=== PATIENT | female | born 1990 | race Caucasian/White ===

== ENCOUNTER 2018-07-18 12:18 | Emergency (ER) | payer OTHER ==
--- NOTE | 2018-07-18 12:50 | ED Physician Documentation ---
History of Present Illness - Stated complaint Stated Complaint: ABD PX - Chief complaint Chief Complaint: Abd Pain - History obtained from History obtained from: Patient - History of Present Illness Timing: Prior to arrival - Additonal information Additional information: Patient is a previously healthy 28-year-old female with history of nephrolithiasis presenting with concern for recurrent left-sided kidney stones. Patient reports pain started at approximately 8 AM today without other inciting incident. Patient complains ofLeft-sided flank pain that radiates towards her abdomen, as well as suprapubic abdominal pain accompanied by nausea and vomiting. Patient reports decreased urination without specific hematuria or dysuria. Patient also denies fever or other vaginal complaints including bleeding. No particular worsening or improving factors noted to her symptoms. Patient reports that she has not .Patient has never required surgical intervention or placement of stents for her previous kidney stones. Review of Systems Constitutional: denies: Fever GI: reports: Abdominal Pain, Nausea, Vomiting : denies: Dysuria Musculoskeletal: reports: Back pain PD PAST MEDICAL HISTORY - Past Medical History Past Medical History: Yes : Kidney stones Psych: Depression, Anxiety - Past Surgical History Past Surgical History: No - Present Medications Home Medications: Ambulatory Orders Medication Instructions Recorded Confirmed Acetaminophen [Tylenol] 08/30/12 08/30/12 Acetaminophen/Cod 300/30 [Tylenol 08/30/12 08/30/12 #3] Hydroxyzine HCl 25 mg HS 08/30/12 08/30/12 Meloxicam 08/30/12 08/30/12 Pseudoephedrine [Sudafed] PO 3-4XD 08/30/12 08/30/12 Sertraline [Zoloft] 50 mg DAILY 08/30/12 08/30/12 guaiFENesin [Mucinex] 600 mg PO BID 08/30/12 08/30/12 Hydrocodone/Acetaminophen 1 - 2 each PO Q6H PRN #14 tablet 07/18/18 [Hydrocodon-Acetaminophen 5-325] Ondansetron Odt [Zofran] 4 mg TL Q6H PRN #10 tablet 07/18/18 Tamsulosin HCl [Flomax] 0.4 mg PO DAILY #14 cap.er.24h 07/18/18 - Allergies Allergies/Adverse Reactions: Allergies Allergy/AdvReac Type Severity Reaction Status Date / Time No Known Drug Allergies Allergy Verified 08/30/12 18:45 - Social History Does the pt smoke?: No Smoking Status: Never smoker Does the pt drink ETOH?: Yes Does the pt have substance abuse?: No - Immunizations Immunizations are current?: Yes - POLST Patient has POLST: No PD ED PE NORMAL - General General: Alert and oriented X 3, No acute distress, Well developed/nourished (Curled up in the position, uncomfortable appearing) - HEENT HEENT: Atraumatic, Moist mucous membranes - Cardiac Cardiac: RRR, No murmur - Respiratory Respiratory: No respiratory distress, Clear bilaterally - Abdomen Abdomen: Normal bowel sounds, Soft, Non distended. No: Non tender (Mild suprapubic tenderness) - Back Back: No: No CVA TTP (Left-sided CVA tenderness present) - Derm Derm: Normal color, Warm and dry, No rash - Extremities Extremities: No deformity, No tenderness to palpate - Neuro Neuro: Alert and oriented X 3, No motor deficit, No sensory deficit - Psych Psych: Normal mood, Normal affect Results - Vitals Vitals: Vital Signs - 24 hr 07/18/18 07/18/18 12:26 14:48 Temperature 36.4 C L 36.8 C Heart Rate 60 56 L Respiratory 18 18 Rate Blood Pressure 128/85 H 99/60 O2 Saturation 100 99 Oxygen O2 Source Room air - Labs Labs: Laboratory Tests 07/18/18 07/18/18 07/18/18 13:14 13:14 13:14 WBC 15.2 H RBC 4.64 Hgb 13.2 Hct 40.3 MCV 86.9 MCH 28.5 MCHC 32.8 RDW 14.2 Plt Count 227 MPV 8.7 Neut # (Auto) 13.9 H Lymph # (Auto) 0.7 L [place] # (Auto) 0.5 Eos # (Auto) 0.0 Baso # (Auto) 0.1 Absolute Nucleated RBC 0.00 Nucleated RBC % 0.0 Sodium 136 Potassium 3.9 Chloride 104 Carbon Dioxide 21 Anion Gap 11.0 BUN 19 Creatinine 0.8 Estimated GFR (MDRD) 84 L Glucose 123 H Calcium 9.1 Total Bilirubin 0.2 AST 20 ALT 15 Alkaline Phosphatase 59 Total Protein 7.2 Albumin 4.4 Globulin 2.8 Albumin/Globulin Ratio 1.6 Lipase 30 HCG, Quant < 0.60 Urine Color Urine Clarity Urine pH Ur Specific [place] Urine Protein Urine Glucose (UA) Urine Ketones Urine Occult Blood Urine Nitrite Urine Bilirubin Urine Urobilinogen Ur Leukocyte Esterase Urine RBC Urine WBC Ur Squamous Epith Cells Urine Bacteria Ur Microscopic Review Urine Culture Comments 07/18/18 14:30 WBC RBC Hgb Hct MCV MCH MCHC RDW Plt Count MPV Neut # (Auto) Lymph # (Auto) [place] # (Auto) Eos # (Auto) Baso # (Auto) Absolute Nucleated RBC Nucleated RBC % Sodium Potassium Chloride Carbon Dioxide Anion Gap BUN Creatinine Estimated GFR (MDRD) Glucose Calcium Total Bilirubin AST ALT Alkaline Phosphatase Total Protein Albumin Globulin Albumin/Globulin Ratio Lipase HCG, Quant Urine Color YELLOW Urine Clarity HAZY Urine pH 7.0 Ur Specific [place] 1.020 Urine Protein NEGATIVE Urine Glucose (UA) NEGATIVE Urine Ketones 15 H Urine Occult Blood LARGE H Urine Nitrite NEGATIVE Urine Bilirubin NEGATIVE Urine Urobilinogen 0.2 (NORMAL) Ur Leukocyte Esterase NEGATIVE Urine RBC TNTC H Urine WBC 0-3 Ur Squamous Epith Cells RARE Squamous Urine Bacteria None Seen Ur Microscopic Review INDICATED Urine Culture Comments NOT INDICATED PD MEDICAL DECISION MAKING - ED course Complexity details: reviewed results, re-evaluated patient, considered differential, d/w patient ED course: Most concerning for pyelonephritis, nephrolithiasis, UTI given patient's history, similar symptoms today, and physical exam findings. Vital signs within normal limits. IV placement obtained and patient started on IV fluid, as well as nausea and pain medication. Blood work and urinalysis obtained, as well as ordered CT to further evaluate for location and size of likely stone. Lower suspicion for vaginal or ovarian pathology including torsion or cyst, but considered. Also have low suspicion for other intra-abdominal pathology including appendicitis, gallbladder disease, small bowel obstruction, AAA, diverticulitis, but considered.Lab work returned relatively unremarkable except for mild leukocytosis, but no evidence of elevation in creatinine. Unsure if this leukocytosis is reflective of repetitive vomiting from earlier today or infection. Patient is otherwise afebrile and vital signs within normal limits. Urinalysis also obtained which indicated presence of blood, but does not appear infected. CT imaging indicated nonobstructive and otherwise relatively uncomplicated 4 mm stone on the left. Advised patient of results and recommendations and feel that she is appropriate to treat symptomatically at home with Flomax, pain medication, nausea medication. At this time, do not feel she requires antibiotic therapy. Advised on strict return precautions, other supportive cares, need for primary care and possibly urology follow-up. Patient voiced understanding and is comfortable with discharge plan. Departure - Departure Disposition: 01 Home, Self Care Clinical Impression: Kidney stones Condition: Good Instructions: ED Stone Renal W Colic Follow-Up: your,doctor [Other] - Within 3 Days Prescriptions: Hydrocodone/Acetaminophen [Hydrocodon-Acetaminophen 5-325] 1 - 2 each PO Q6H PRN #14 tablet PRN Reason: pain Ondansetron Odt [Zofran] 4 mg TL Q6H PRN #10 tablet PRN Reason: Nausea / Vomiting Tamsulosin HCl [Flomax] 0.4 mg PO DAILY #14 cap.er.24h Comments: Please continue any home medications as previously instructed. May use Flomax, Zofran, [place] as prescribed to help pass stone, control nausea, control pain, respectively. If taking [place], do not combine with alcohol, driving, or additional Tylenol. If taking [place] regularly, recommend use of stool softener or laxative to avoid constipation. If not using [place], may use ibuprofen or Tylenol. Also recommend hydration and close follow-up with either primary care physician or urologist. Recommend [facility] in [facility]. Return to ED sooner if expands worsening symptoms or other concerns.
[2018-07-18] MEDS ORDERED: ONDANSETRON 4 MG/2 ML VIAL IVP STA (12:55)
[2018-07-18] MEDS ORDERED: KETOROLAC 30 MG/ML VIAL IVP STA (12:55)
[2018-07-18] MEDS ORDERED: fentaNYL 100 MCG/2 ML VIAL IVP STA (12:55)
[2018-07-18] MEDS ORDERED: SODIUM CHLORIDE 0.9% 1,000 ML IV ONE (12:55)
[2018-07-18 13:18] LABS: BASOPHILS # (AUTO) 0.1 10^3/uL (0.0-0.1); BASOPHILS % (AUTO) 0.4 %; EOSINOPHILS % (AUTO) 0.1 %; HGB - HEMOGLOBIN 13.2 g/dL (12.0-16.0); LYMPHOCYTES # (AUTO) 0.7 10^3/uL (1.5-3.5); LYMPHOCYTES % (AUTO) 4.3 %; MEAN CORPUSCULAR HEMOGLOBIN 28.5 pg (27.0-31.0); MEAN CORPUSCULAR HGB CONC 32.8 g/dL (32.0-36.0); MEAN CORPUSCULAR VOLUME 86.9 fL (81.0-99.0); MEAN PLATELET VOLUME 8.7 fL (7.9-10.8); MONOCYTES # (AUTO) 0.5 10^3/uL (0.0-1.0); MONOCYTES % (AUTO) 3.4 %; NEUTROPHILS # (AUTO) 13.9 10^3/uL (1.5-6.6); NEUTROPHILS % (AUTO) 91.8 %; PLT - PLATELET COUNT 227 10^3/uL (130-450); RED BLOOD COUNT 4.64 10^6/uL (4.20-5.40); RED CELL DISTRIBUTION WIDTH 14.2 % (12.0-15.0); WHITE BLOOD COUNT 15.2 x10^3/uL (4.8-10.8)
[2018-07-18 13:42] LABS: ALBUMIN 4.4 g/dL (3.2-5.5); ALBUMIN/GLOBULIN RATIO 1.6 (1.0-2.2); BILIRUBIN,TOTAL 0.2 mg/dL (0.2-1.0); CALCIUM 9.1 mg/dL (8.5-10.3); CREATININE 0.8 mg/dL (0.4-1.0); TOTAL PROTEIN 7.2 g/dL (6.7-8.2)
--- NOTE | 2018-07-18 13:59 | CT Report ---
Reason: concern for left side kidney stone Procedure Date: 07/18/2018 Accession Number: [id number] / [id number] Procedure: CT - Abdomen/Pelvis WO CPT Code: FULL RESULT: EXAM: CT ABDOMEN AND PELVIS (CT KUB) EXAM DATE: 07/18/2018 01:43 PM. CLINICAL HISTORY: Concern for left side kidney stone. COMPARISONS: None available. TECHNIQUE: Routine axial helical CT imaging was performed through the abdomen and pelvis without IV contrast. Reconstructions: Coronal and sagittal. In accordance with CT protocol optimization, one or more of the following dose reduction techniques were utilized for this exam: automated exposure control, adjustment of mA and/or KV based on patient size, or use of iterative reconstructive technique. FINDINGS: Lung Bases: Unremarkable. Right Kidney/Ureter: No stones, hydronephrosis, or hydroureter. No perinephric fat stranding. Left Kidney/Ureter: Mild hydronephrosis secondary to a 4 mm stone in the distal left ureter approximately 8 mm from the left ureterovesical junction. Mild perinephric fat stranding. Other Solid Organs: Noncontrast images of the solid organs are grossly unremarkable. Gallbladder/Bile Ducts: Unremarkable. Peritoneal Cavity: Small hiatal hernia. Nonobstructive bowel gas pattern. No free air or free fluid. The appendix is well visualized and normal. Pelvic Organs: No intraluminal stones in the urinary bladder. Hypodense mass in the left adnexa measuring 2.6 x 2.7 cm, which may represent a dominant follicle in the left ovary versus corpus luteal cyst. Vasculature: Unremarkable. Other: None. IMPRESSION: Mild hydronephrosis of the left kidney secondary to a 4 mm stone in the distal left ureter. Small hiatal hernia. Normal appendix. Hypodense mass in the left adnexa, possible dominant follicle or corpus luteal cyst. This could be further evaluated with pelvic ultrasound as needed. RADIA
[2018-07-18 14:42] LABS: BILIRUBIN,URINE NEGATIVE (NEGATIVE); GLUCOSE, URINE (UA) NEGATIVE (NEGATIVE); KETONES,URINE (UA) 15 mg/dL (NEGATIVE); LEUKOCYTE ESTERASE, URINE NEGATIVE (NEGATIVE); NITRITE,URINE NEGATIVE (NEGATIVE); OCCULT BLOOD,URINE LARGE (NEGATIVE); PROTEIN,URINE NEGATIVE (NEGATIVE); UROBILINOGEN,URINE 0.2 (NORMAL) E.U./dL (NORMAL)
[2018-07-18 14:44] LABS: CLARITY,URINE HAZY (CLEAR)
[2018-07-18 14:49] VITALS: BP 99/60
[2018-07-18 14:50] LABS: BACTERIA,URINE None Seen /HPF (None Seen); RBC,URINE TNTC /HPF (0-5); SQUAMOUS EPITHELIAL CELL,UR RARE Squamous (<= Few)
== END 2018-07-18 15:04 | disposition home or self-care (01) ==
LOC: ED 12:18
DX: N13.2 Hydronephrosis with renal and ureteral calculous obstruction (principal); K44.9 Diaphragmatic hernia without obstruction or gangrene
CPT/HCPCS: 36415; 74176; 80053; 81001; 81003; 83690; 84702; 85025; 87086; 96374; 96375; 99283; 99284

== ENCOUNTER 2018-08-03 10:38 | Outpatient (CLI) | payer OTHER ==
--- NOTE | 2018-08-03 11:25 | CT Report ---
Reason: CALCULUS OF KIDNEY Procedure Date: 08/03/2018 Accession Number: [id number] / [id number] Procedure: CT - Abdomen/Pelvis WO CPT Code: FULL RESULT: EXAM: CT ABDOMEN AND PELVIS (CT KUB) EXAM DATE: 08/03/2018 10:54 AM. CLINICAL HISTORY: CALCULUS OF KIDNEY. COMPARISONS: ABDOMEN/PELVIS W/O 07/18/2018 1:32 PM. TECHNIQUE: Routine axial helical CT imaging was performed through the abdomen and pelvis without IV contrast. Reconstructions: Coronal and sagittal. In accordance with CT protocol optimization, one or more of the following dose reduction techniques were utilized for this exam: automated exposure control, adjustment of mA and/or KV based on patient size, or use of iterative reconstructive technique. FINDINGS: Lung Bases: Unremarkable. Right Kidney/Ureter: No stones, hydronephrosis, or hydroureter. No perinephric fat stranding. Left Kidney/Ureter: No stones, hydronephrosis, or hydroureter. The previous left hydronephrosis has resolved. No perinephric fat stranding. Other Solid Organs: Noncontrast images of the solid organs are grossly unremarkable. Gallbladder/Bile Ducts: Unremarkable. Peritoneal Cavity: No free fluid, free air or jeff adenopathy. Bowel is grossly unremarkable. Pelvic Organs: No bladder stones or wall thickening. Noncontrast images of the visualized pelvic organs are unremarkable. Vasculature: Unremarkable. Other: None. IMPRESSION: Negative examination. No evidence of urolithiasis or hydronephrosis. The previous left hydronephrosis has resolved RADIA
== END 2018-08-03 10:39 | disposition home or self-care (01) ==
LOC: DI 10:38
PROVIDERS: ATTEND Specialist
DX: N20.0 Calculus of kidney (principal)
CPT/HCPCS: 74176

== ENCOUNTER 2018-08-10 18:43 | Outpatient (CLI) | payer OTHER ==
--- NOTE | 2018-08-10 22:14 | Ultrasound Report ---
Reason: ACUTE PANCREATITIS WITHOUT NECROSIS OR INFECTION, Procedure Date: 08/10/2018 Accession Number: [id number] / [id number] Procedure: US - Abdomen Limited CPT Code: FULL RESULT: EXAM: ABDOMEN ULTRASOUND LIMITED, RUQ EXAM DATE: 08/10/2018 07:30 PM. CLINICAL HISTORY: ACUTE PANCREATITIS WITHOUT NECROSIS OR INFECTION. COMPARISON: ABDOMEN/PELVIS W/O 08/03/2018 10:49 AM. TECHNIQUE: Real-time scanning was performed with static images obtained. FINDINGS: Liver: Normal in size and echotexture. 15.8 cm. Main portal vein flow: Hepatopetal. Gallbladder: Normal. No stones, wall thickening, or sonographic Dubon's sign. Biliary System: CBD measures 3 mm. No intrahepatic or extrahepatic ductal dilatation. Pancreas: Normal. Right kidney: 10.6 cm. No hydronephrosis. Abdominal aorta and IVC: Normal. Other: None. IMPRESSION: Normal. No cholelithiasis or cholecystitis. RADIA
== END 2018-08-10 18:44 | disposition home or self-care (01) ==
LOC: DI 18:43
PROVIDERS: ATTEND Specialist
DX: K85.90 Acute pancreatitis without necrosis or infection, unspecified (principal)
CPT/HCPCS: 76705

== ENCOUNTER 2019-11-05 15:57 | Emergency (ER) | payer OTHER ==
--- NOTE | 2019-11-05 16:09 | ED Physician Documentation ---
History of Present Illness - Stated complaint Stated Complaint: FEMALE - Chief complaint Chief Complaint: General - History obtained from History obtained from: Patient (She has 2 painful lumps that have been going on for a little over 48 hours, one is on the left side of the groin and one is on the perineum. Denies fevers or chills.) Review of Systems Constitutional: denies: Fever, Chills GI: denies: Abdominal Pain, Nausea, Vomiting, Diarrhea : denies: Dysuria, Frequency PD PAST MEDICAL HISTORY - Past Medical History : Kidney stones Psych: Depression, Anxiety - Past Surgical History Past Surgical History: No - Present Medications Home Medications: Ambulatory Orders Medication Instructions Recorded Confirmed Acetaminophen [Tylenol] 08/30/12 08/30/12 Acetaminophen/Cod 300/30 [Tylenol 08/30/12 08/30/12 #3] Hydroxyzine HCl 25 mg HS 08/30/12 08/30/12 Meloxicam 08/30/12 08/30/12 Pseudoephedrine [Sudafed] PO 3-4XD 08/30/12 08/30/12 Sertraline [Zoloft] 50 mg DAILY 08/30/12 08/30/12 guaiFENesin [Mucinex] 600 mg PO BID 08/30/12 08/30/12 Hydrocodone/Acetaminophen 1 - 2 each PO Q6H PRN #14 tablet 07/18/18 [Hydrocodon-Acetaminophen 5-325] Ondansetron Odt [Zofran] 4 mg TL Q6H PRN #10 tablet 07/18/18 Tamsulosin HCl [Flomax] 0.4 mg PO DAILY #14 cap.er.24h 07/18/18 Sulfamethoxazole/Trimethoprim 1 each PO BID 7 Days #14 tablet 11/05/19 [Sulfamethoxazole-Tmp Ds Tablet] - Allergies Allergies/Adverse Reactions: Allergies Allergy/AdvReac Type Severity Reaction Status Date / Time No Known Drug Allergies Allergy Verified 11/05/19 16:01 - Social History Does the pt smoke?: No Smoking Status: Never smoker Does the pt drink ETOH?: Yes Does the pt have substance abuse?: No - Immunizations Immunizations are current?: Yes - POLST Patient has POLST: No PD ED PE NORMAL - Vitals Vital signs reviewed: Yes - General General: Alert and oriented X 3, No acute distress - Abdomen Abdomen: Soft, Non tender - Female Female : Other (Exam done with Sonya SPENCER present and chaperoning as were all procedures. She has a pointed inferior left gluteal abscess and reactive left inguinal lymph node.) - Neuro Neuro: Alert and oriented X 3, Normal speech - Psych Psych: Normal mood, Normal affect Results - Vitals Vitals: Vital Signs - 24 hr 11/05/19 16:01 Temperature 37.2 C Heart Rate 87 Respiratory 16 Rate Blood Pressure 107/72 O2 Saturation 99 Oxygen O2 Source Room air Procedures - Abscess I&D (location) L buttock Preparation: Alcohol, Lidocaine 1% Incision: Incised with scalpel, Purulent drainage, Loculations broken, Culture obtained, Other (sebaceous material) Other: Pt tolerated well, Dressing applied, Antibiotic prescribed Departure - Departure Disposition: 01 Home, Self Care Clinical Impression: Abscess, gluteal Condition: Good Record reviewed to determine appropriate education?: Yes Instructions: ED Abscess IandD Prescriptions: Sulfamethoxazole/Trimethoprim [Sulfamethoxazole-Tmp Ds Tablet] 1 each PO BID 7 Days #14 tablet Comments: As discussed, this looks like what is known as a sebaceous cyst that got infected. If it recurs you will need to see a general surgeon for an excision at a time when it is not actively infected. Return if worse. We are performing a wound culture, the results should be done in 48-72 hours. If antibiotic change is necessary we will call you. Return if worse in the meantime, especially if you develop increased pain, fevers, cannot keep down the medication. Otherwise follow-up with your physician in approximately 2-3 days.
[2019-11-05] MEDS ORDERED: BUFFERED LIDOCAINE 10 ML SYRINGE SUBQ STA (16:25)
[2019-11-05 16:51] VITALS: BP 119/75
== END 2019-11-05 16:51 | disposition home or self-care (01) ==
LOC: ED 15:57
DX: L02.31 Cutaneous abscess of buttock (principal); R59.0 Localized enlarged lymph nodes
CPT/HCPCS: 10060; 87070; 87077; 87181; 87205

== ENCOUNTER 2020-12-28 08:00 | Outpatient (CLI) | payer OTHER ==
[2020-12-28 18:12] LABS: CREATININE 0.7 mg/dL (0.4-1.0); POTASSIUM 3.8 mmol/L (3.5-5.0)
[2020-12-28 18:16] LABS: HCT - HEMATOCRIT 38.2 % (37.0-47.0); HGB - HEMOGLOBIN 12.4 g/dL (12.0-16.0); MEAN CORPUSCULAR HEMOGLOBIN 28.8 pg (27.0-31.0); MEAN CORPUSCULAR HGB CONC 32.5 g/dL (32.0-36.0); MEAN CORPUSCULAR VOLUME 88.8 fL (81.0-99.0); MEAN PLATELET VOLUME 10.3 fL (7.9-10.8); RED BLOOD COUNT 4.3 10^6/uL (4.20-5.40); WHITE BLOOD COUNT 9.8 x10^3/uL (4.8-10.8)
== END 2020-12-28 23:59 | disposition home or self-care (01) ==
LOC: LAB.N 08:00
PROVIDERS: ATTEND Physician Assistant Medical
DX: N30.00 Acute cystitis without hematuria (principal)
CPT/HCPCS: 36415; 80048; 85027; 87086; 87181

== ENCOUNTER 2021-02-28 07:43 | Outpatient (CLI) | payer OTHER ==
--- NOTE | 2021-03-04 11:47 | Ultrasound Report ---
LIMITED ULTRASOUND OF LEFT BREAST: 02/28/2021 CLINICAL: Palpable left breast lump. Comparison is made to exam dated: 02/28/2021 mammogram - [facility]. Ultrasound of the left breast 2 o'clock region was performed. [place] scale images of the real-time ex amination were reviewed. No significant abnormalities were seen sonographically in the left breast. IMPRESSION: NEGATIVE There is no sonographic evidence of malignancy or other abnormality in the left breast. Follow-up US of the right breast in 6 months recommended to document stability of a suspected fibroadenoma. This exam was interpreted at Station ID: [id number]. Electronically Signed By: Kristopher Cotter M.D. jr/:02/28/2021 09:29:35 Ultrasound BI-RADS: 1 Negative BI-RADS CATEGORY: (1) - 1 Unspecified - other recall n/a LATERALITY: (B)
--- NOTE | 2021-03-04 11:47 | Mammography Report ---
BILATERAL DIGITAL DIAGNOSTIC MAMMOGRAM 3D/2D: 02/28/2021 CLINICAL: Palpable lumps in both breasts. No prior exams were available for comparison. The tissue of both breasts is extremely dense, which l owers the sensitivity of mammography. There is a mass with an indistinct margin in the right breast at 5 o'clock middle depth. This correl ates as palpated. No other significant masses, calcifications, or other findings are seen in either breast. IMPRESSION: INCOMPLETE: NEEDS ADDITIONAL IMAGING EVALUATION The mass in the right breast is indeterminate. An ultrasound is recommended. This exam was interpreted at Station ID: [id number]. NOTE: For mammograms, a report in lay terms will be sent to the patient. Approximately 15% of breast malignancies will not be visualized mammographically. In the management of a palpable breast mass, a negative mammogram must not discourage biopsy of a clinically suspicious lesion. Electronically Signed By: Kristopher Cotter M.D., jr/leobardo:02/28/2021 09:26:27 ACR BI-RADS Category 0: Incomplete 3340F PARENCHYMAL PATTERN: (VD) - The breast(s) demonstrate(s) extremely dense parenchyma, limiting the sen sitivity of mammography. BI-RADS CATEGORY: (0) - 0 Unspecified - other recall n/a LATERALITY: (B)
--- NOTE | 2021-03-04 11:47 | Ultrasound Report ---
LIMITED ULTRASOUND OF RIGHT BREAST AND AXILLA: 02/28/2021 CLINICAL: Palpable right breast lumps. Comparison is made to exam dated: 02/28/2021 mammogram - [facility]. Color flow and real-time ultrasound of the right breast 1 o'clock, 5 o'clock, and axilla regions were performed. [place] scale images of the real-time examination were reviewed. There is a 1.4 cm x 0.5 cm x 1.6 cm oval mass with a circumscribed margin in the right breast at 5 o' clock middle depth 6 cm from the nipple. This oval mass is hypoechoic with an abrupt boundary and no posterior acoustic shadowing or enhancement. This correlates as palpated and with mammography findi ngs. Color flow imaging demonstrates that there is no vascularity present. No sonographic (or mammographic) abnormality at the 1 o'clock palpable area of concern. IMPRESSION: PROBABLY BENIGN The 1.4 cm x 0.5 cm x 1.6 cm oval mass in the right breast is consistent with a fibroadenoma and is p robably benign. A follow-up ultrasound in 6 months is recommended to demonstrate stability. This exam was interpreted at Station ID: [id number]. Electronically Signed By: Kristopher Cotter M.D. jr/:02/28/2021 09:27:59 Ultrasound BI-RADS: 3 Probably benign BI-RADS CATEGORY: (3) - 3 Ultrasound [id number] 6 month follow-up LATERALITY: (B)
== END 2021-02-28 07:44 | disposition home or self-care (01) ==
LOC: DI 07:43
PROVIDERS: ATTEND Obstetrics & Gynecology
DX: N63.14 Unspecified lump in the right breast, lower inner quadrant (principal); N64.59 Other signs and symptoms in breast

== ENCOUNTER 2021-03-18 22:59 | Emergency (ER) | payer OTHER ==
[2021-03-18] MEDS ORDERED: SODIUM CHLORIDE 0.9% 1,000 ML IV STA (23:07)
[2021-03-18] MEDS ORDERED: HYDROmorphone 1 MG/ML CARPUJECT IVP STA (23:26)
--- NOTE | 2021-03-18 23:29 | ED Physician Documentation ---
History of Present Illness - Stated complaint Stated Complaint: LQ PX/N - Chief complaint Chief Complaint: Abd Pain - History obtained from History obtained from: Patient - Additonal information Additional information: Patient comes emergency department chief complaint of left flank pain that started a couple days ago. Patient states it was more of a dull ache but that the pain has become sharper this afternoon. Patient has a history of kidney stone with last would be it about 2 years ago. She is wondering if she is having another kidney stone. She has not noticed hematuria or migration of the pain, but has noticed dysuria. She states she always gets hot and cold flashes so she does not really know if she has had a fever. She is not measured, but states that her hot and cold flashes do not feel any different than usual. She states she has slight nausea, but she thinks this is related to the pain. No recent heavy work with her back, though she does note she is packing for a move. No other complaints at this time. No loss of bowel or bladder control and no weakness or numbness/tingling of the left lower extremity. Review of Systems Ten Systems: 10 systems reviewed and negative Constitutional: reports: Reviewed and negative Eyes: reports: Reviewed and negative Ears: reports: Reviewed and negative Nose: reports: Reviewed and negative Throat: reports: Reviewed and negative Cardiac: reports: Reviewed and negative Respiratory: reports: Reviewed and negative GI: reports: Abdominal Pain (Left flank) : reports: Dysuria. denies: Hematuria Skin: reports: Reviewed and negative Musculoskeletal: reports: Reviewed and negative Neurologic: reports: Reviewed and negative Psychiatric: reports: Reviewed and negative Endocrine: reports: Reviewed and negative Immunocompromised: reports: Reviewed and negative PD PAST MEDICAL HISTORY - Past Medical History Cardiovascular: None Respiratory: None Neuro: None Endocrine/Autoimmune: HyPOthyroidism GI: None NURSE PRIVATE DUTY: Miscarriage(s) : Kidney stones HEENT: None Psych: Depression, Anxiety Musculoskeletal: Fibromyalgia Derm: None - Past Surgical History Past Surgical History: No - Present Medications Home Medications: Ambulatory Orders Medication Instructions Recorded Confirmed Acetaminophen [Tylenol] 08/30/12 08/30/12 Acetaminophen/Cod 300/30 [Tylenol 08/30/12 08/30/12 #3] Hydroxyzine HCl 25 mg HS 08/30/12 08/30/12 Meloxicam 08/30/12 08/30/12 Pseudoephedrine [Sudafed] PO 3-4XD 08/30/12 08/30/12 Sertraline [Zoloft] 50 mg DAILY 08/30/12 08/30/12 guaiFENesin [Mucinex] 600 mg PO BID 08/30/12 08/30/12 Hydrocodone/Acetaminophen 1 - 2 each PO Q6H PRN #14 tablet 07/18/18 [Hydrocodon-Acetaminophen 5-325] Ondansetron Odt [Zofran] 4 mg TL Q6H PRN #10 tablet 07/18/18 Tamsulosin HCl [Flomax] 0.4 mg PO DAILY #14 cap.er.24h 07/18/18 Sulfamethoxazole/Trimethoprim 1 each PO BID 7 Days #14 tablet 11/05/19 [Sulfamethoxazole-Tmp Ds Tablet] Ciprofloxacin HCl [Cipro] 500 mg PO BID #14 tablet 03/19/21 Tamsulosin HCl [Flomax] 0.4 mg PO DAILY #5 03/19/21 - Allergies Allergies/Adverse Reactions: Allergies Allergy/AdvReac Type Severity Reaction Status Date / Time No Known Drug Allergies Allergy Verified 03/18/21 23:01 - Social History Does the pt smoke?: No Smoking Status: Never smoker Does the pt drink ETOH?: Yes Does the pt have substance abuse?: No - Immunizations Immunizations are current?: Yes - POLST Patient has POLST: No PD ED PE NORMAL - Vitals Vital signs reviewed: Yes - General General: Alert and oriented X 3, No acute distress, Well developed/nourished, Other (The patient appears mildly uncomfortable, holding her left flank, but otherwise in no apparent distress.) - HEENT HEENT: Atraumatic, PERRL, EOMI, Moist mucous membranes - Neck Neck: Supple, no meningeal sign - Cardiac Cardiac: RRR, No murmur - Respiratory Respiratory: No respiratory distress, Clear bilaterally - Abdomen Abdomen: Soft, Non distended, Other (Mild left upper quadrant tenderness with moderate left flank tenderness. No rebound or guarding. No lower quadrant tenderness.) - Derm Derm: Normal color, Warm and dry, No rash - Extremities Extremities: No deformity, No edema - Neuro Neuro: Alert and oriented X 3, blanket folder 2-12 intact, Normal speech, Other (Grossly intact) - Psych Psych: Normal mood, Normal affect Results - Vitals Vitals: Vital Signs - 24 hr 03/18/21 03/18/21 03/19/21 23:01 23:10 01:00 Temperature 36.5 C 36.5 C Heart Rate 66 66 89 Respiratory 18 18 16 Rate Blood Pressure 100/70 100/70 127/88 H O2 Saturation 100 100 100 Oxygen O2 Source Room air - Labs Labs: Laboratory Tests 03/18/21 23:20 Urine Color YELLOW Urine Clarity SL. CLOUDY Urine pH 6.0 Ur Specific [place] <=1.005 Urine Protein TRACE Urine Glucose (UA) NEGATIVE Urine Ketones NEGATIVE Urine Occult Blood MODERATE H Urine Nitrite POSITIVE H Urine Bilirubin NEGATIVE Urine Urobilinogen 0.2 (NORMAL) Ur Leukocyte Esterase MODERATE H Urine RBC 6-10 H Urine WBC >25 H Ur Squamous Epith Cells NONE SEEN Urine Bacteria Many H Ur Microscopic Review INDICATED Urine Culture Comments INDICATED Urine HCG, Qual NEGATIVE - Rads (name of study) CT abdomen and pelvis, noncontrast Radiology: Final report received, EMP read indepedently, See rad report (3 mm left UVJ stone) PD MEDICAL DECISION MAKING - ED course Complexity details: reviewed results, re-evaluated patient, considered differential, d/w patient ED course: The patient was treated symptomatically with IV fluids and Dilaudid, as I did not have a test back yet. She was worked up with urinalysis and ultimately, CT scan of the abdomen and pelvis. CT did show a 3 mm stone at the patient's left UVJ. Urinalysis showed what appeared to be a urinary tract infection. The patient was very well-appearing and the stone was of a very passable size. Given that it was right at the UVJ, I suspected that it would pass very soon. Additionally, the patient's pain had completely resolved in the emergency department. I discussed with her that in general, there is some risk with urinary tract infection and presence of a calculus that is being passed, but given the small size of the stone and its presence at the final portal, I feel that this stone will most likely pass very soon and therefore, render the likelihood of complications from the UTI extremely low. I have started the patient on ciprofloxacin here. She states she is moving to [place] in 4 days, but I have advised her that should anything at all begin to get worse, she needs to return to the emergency department immediately. The patient is advised to drink plenty of water and strain her urine. She is also advised to take Flomax. She has been given dose of both this and Cipro here in the emergency department, and has been given prescriptions for both at home. We have discussed the usual indications for return. Departure - Departure Disposition: 01 Home, Self Care Clinical Impression: Kidney stone on left side UTI (urinary tract infection) Qualifiers: Urinary tract infection type: acute cystitis Hematuria presence: with hematuria Qualified Code(s): N30.01 - Acute cystitis with hematuria Condition: Stable Instructions: ED UTI Cystitis Female, ED Stone Renal W Colic Prescriptions: Ciprofloxacin HCl [Cipro] 500 mg PO BID #14 tablet Tamsulosin HCl [Flomax] 0.4 mg PO DAILY #5 Comments: Your urinalysis shows signs of infection. Your CT scan shows a small kidney stone on the left that is just about to pop into your bladder. We have given you a liter of IV fluid here and it is very important that you continue to drink lots of water. You should take the antibiotics every day, as directed, until the course is complete. Since your stone is right at the junction with the bladder and should pop through at any time, it is unlikely that complications will arise from the combination of urinary tract infection and kidney stone. However, if you develop fevers, severe pain, or lightheadedness or otherwise just do not feel right, it is very important that you return immediately for further evaluation. Since you are moving in just a few days, it is unlikely you will be able to follow-up with urology before leaving. Therefore, it is very important that you pay attention to your symptoms and return here to the emergency department, should anything seem to be getting worse. Discharge Date/Time: 03/19/21 01:39
[2021-03-19 00:10] LABS: BILIRUBIN,URINE NEGATIVE (NEGATIVE); GLUCOSE, URINE (UA) NEGATIVE (NEGATIVE); KETONES,URINE (UA) NEGATIVE (NEGATIVE); LEUKOCYTE ESTERASE, URINE MODERATE (NEGATIVE); NITRITE,URINE POSITIVE (NEGATIVE); OCCULT BLOOD,URINE MODERATE (NEGATIVE); PROTEIN,URINE TRACE mg/dL (NEGATIVE); UROBILINOGEN,URINE 0.2 (NORMAL) E.U./dL (NORMAL)
[2021-03-19 00:11] LABS: CLARITY,URINE SL. CLOUDY (CLEAR); HCG UR QUAL NEGATIVE
[2021-03-19] MEDS ORDERED: KETOROLAC 30 MG/ML VIAL IVP STA (00:15)
[2021-03-19 00:16] LABS: BACTERIA,URINE Many /HPF (None Seen); SQUAMOUS EPITHELIAL CELL,UR NONE SEEN (<= Few); WBC,URINE >25 /HPF (0-5)
[2021-03-19 01:04] VITALS: BP 127/88
[2021-03-19] MEDS ORDERED: CIPROFLOXACIN 250 MG TABLET PO STA (01:12)
[2021-03-19] MEDS ORDERED: TAMSULOSIN 0.4 MG CAPSULE PO STA (01:12)
--- NOTE | 2021-03-19 01:18 | CT Report ---
PROCEDURE: Abdomen/Pelvis WO INDICATIONS: L flank pain, h/o kidney stone TECHNIQUE: Noncontrast 5 mm thick sections acquired from the diaphragms to the symphysis. 5 mm coronal and sagi ttal reformats were then performed. For radiation dose reduction, the following was used: automated exposure control, adjustment of mA and/or kV according to patient size. COMPARISON: Ultrasound of abdomen dated 08/10/2018. FINDINGS: Image quality: Excellent. ABDOMEN: Lung bases: Lung bases are clear. Heart size is normal. Solid organs: Liver and spleen are normal in size. Gallbladder is within normal limits. Pancreas i s normal in contours. No adrenal nodules. Kidneys are normal in size. There is mild to moderate left-sided hydronephrosis and hydroureter. Ther e is a 3 mm stone seen in the region of left UVJ. No right-sided hydronephrosis or hydroureter. 2 to 3 mm nonobstructing stone is seen in midpole of right kidney. Peritoneum and bowel: Unenhanced bowel loops demonstrate normal wall thickness and caliber. No free fluid or air. Nodes and vessels: No retroperitoneal or mesenteric adenopathy by size criteria. Aorta and inferior vena cava are normal in caliber. Miscellaneous: No ventral hernias. PELVIS: Genitourinary: Bladder wall thickness is normal. Miscellaneous: No inguinal hernias or adenopathy. No gross abnormality is seen in uterus and bilate ral adnexa. Bones: No suspicious bony lesions. No vertebral body compression fractures. IMPRESSION: 1. 3 mm left UVJ stone with mild to moderate left-sided hydronephrosis or hydroureter. 2. Nonobstructing stone in right kidney. No right-sided hydronephrosis or hydroureter. Normal-appeari ng urinary bladder. 3. No bowel obstruction or abnormal bowel wall thickening. No free fluid of free air. Reviewed by: Celso Prince MD on 03/19/2021 1:17 AM PST Approved by: Celso Prince MD on 03/19/2021 1:17 AM PST Station ID: [id number]
== END 2021-03-19 01:39 | disposition home or self-care (01) ==
LOC: ED 22:59
DX: N13.2 Hydronephrosis with renal and ureteral calculous obstruction (principal); N30.01 Acute cystitis with hematuria
CPT/HCPCS: 74176; 81001; 81025; 87086; 96361; 96374; 96375; 99284; A9270; J1170; 81003; 87181